=== PATIENT | male | born 1985 | race Caucasian/White ===

== ENCOUNTER → 2021-01-23 | Outpatient (CLI) | payer SELFPAY | LOC: M OUTALCOH 07:56 | PROVIDERS: ATTEND Psychiatry & Neurology Psychiatry | DX: Z03.89 Encounter for observation for other suspected diseases and conditions ruled out (principal) ==

== ENCOUNTER 2021-01-27 15:19 | Outpatient (RCR) | payer SELFPAY | END 2021-02-08 | LOC: M OUTALCOH 15:19 | PROVIDERS: ATTEND Psychiatry & Neurology Psychiatry | DX: Z03.89 Encounter for observation for other suspected diseases and conditions ruled out (principal) ==